=== PATIENT | female | born 1965 | race African-American/Black ===

== ENCOUNTER 2019-09-14 09:22 | Observation (INO) | payer BC ==
[2019-09-14 10:53] LABS: BASO % 0.9 % (0-2.0); EOS % 2.4 % (0-4.5); HEMATOCRIT 38.1 % (32.4-45.2); HEMOGLOBIN 12.6 GM/dL (10.7-15.3); LYMPH % 24.6 % (8-40); MCH 28.1 pg (25.7-33.7); MCHC 33.1 g/dl (32.0-36.0); MEAN PLT VOLUME 9.3 fl (7.5-11.1); MONO % 7.5 % (3.8-10.2); NEUT % 64.6 % (42.8-82.8); PLATELET COUNT 210 K/MM3 (134-434); RBC 4.49 M/mm3 (3.60-5.2); RDW 14.4 % (11.6-15.6); WHITE BLOOD COUNT 7.2 K/mm3 (4.0-10.0)
[2019-09-14 11:07] LABS: INR 1.07 (0.83-1.09); PROTHROMBIN TIME (PATIENT) 12.6 SEC (9.7-13.0)
[2019-09-14 11:35] LABS: ALBUMIN 3.5 g/dl (3.4-5.0); BILIRUBIN,TOTAL 0.6 mg/dL (0.2-1); BLOOD UREA NITROGEN 12.4 mg/dL (7-18); CALCIUM 7.9 mg/dL (8.5-10.1); CREATININE 0.9 mg/dL (0.55-1.3); POTASSIUM 4.1 mmol/L (3.5-5.1); TOT PROT 6.7 g/dl (6.4-8.2)
--- NOTE | 2019-09-14 12:30 | PDOC ---
History of Present Illness - General Chief Complaint: Syncope/Near Syncope Stated Complaint: SYNCOPE,CHIILLS Time Seen by Provider: 09/14/19 10:00 History Source: Patient Exam Limitations: No Limitations Past History - Past Medical History Allergies/Adverse Reactions: Allergies Allergy/AdvReac Type Severity Reaction Status Date / Time No Known Allergies Allergy Verified 09/14/19 09:26 Home Medications: Ambulatory Orders Duloxetine HCl 09/14/19 Ergocalciferol (Vitamin D2) [Vitamin D2] PO WEEKLY 09/14/19 Estradiol 09/14/19 Labetalol HCl 100 mg PO BID 09/14/19 Meloxicam 15 mg PO DAILY 09/14/19 Ofloxacin 1 drop TID 09/14/19 Omeprazole 20 mg PO DAILY 09/14/19 Oxybutynin Chloride [Oxybutynin Chloride ER] 5 mg PO DAILY 09/14/19 CVA: No COPD: No CHF: No DVT: No Dementia: No Other medical history: TRIPLE A - Immunization History Immunization Up to Date: Yes - Psycho Social/Smoking Cessation Hx Smoking History: Never smoked Hx Alcohol Use: No Drug/Substance Use Hx: No *Physical Exam - Vital Signs Last Vital Signs Temp Pulse Resp BP Pulse Ox 98.5 F 70 16 126/83 98 09/14/19 09:27 09/14/19 11:25 09/14/19 11:25 09/14/19 11:25 09/14/19 11:25 - Physical Exam General Appearance: No: Apparent Distress Respiratory/Chest: positive: Lungs Clear, Normal Breath Sounds. negative: Respiratory Distress Cardiovascular: positive: Regular Rhythm, Regular Rate, S1, S2. negative: Murmur Gastrointestinal/Abdominal: positive: Normal Bowel Sounds, Soft. 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, Fully Oriented, Alert, Normal Mood/ Affect, Motor Strength 5/5 ED Treatment Course - LABORATORY CBC & Chemistry Diagram: 09/14/19 10:20 09/14/19 10:20 - ADDITIONAL ORDERS Additional order review: Laboratory Results 09/14/19 09/14/19 09/14/19 10:20 10:20 10:20 PT with INR 12.60 INR 1.07 PTT (Actin FS) 28.0 Sodium 136 Potassium 4.1 Chloride 102 Carbon Dioxide 27 Anion Gap 6 L BUN 12.4 Creatinine 0.9 Est GFR (CKD-EPI)AfAm 85.20 Est GFR (CKD-EPI)NonAf 73.51 Random Glucose 212 H Calcium 7.9 L Total Bilirubin 0.6 AST 26 ALT 20 Alkaline Phosphatase 84 Troponin I < 0.02 Total Protein 6.7 Albumin 3.5 09/14/19 10:20 RBC 4.49 MCV 85.0 MCHC 33.1 RDW 14.4 MPV 9.3 Neutrophils % 64.6 Lymphocytes % 24.6 Monocytes % 7.5 Eosinophils % 2.4 Basophils % 0.9 - RADIOLOGY Radiology Studies Ordered: Category Date Time Status ABDOMEN/PELVIS CTA W/WO CONTR [CT] Stat CT Scan 09/14/19 11:42 Completed CHEST CTA [CT] Stat CT Scan 09/14/19 11:[address] WITHOUT CONTRAST [CT] Stat CT Scan 09/14/19 13:50 Ordered CHEST PA & LAT [RAD] Stat Radiology 09/14/19 10:15 Completed Medical Decision Making - Medical Decision Making 54 y/o F hx of anemia, AAA (dx 3 years ago) presents s/p syncopal episode today. Mentions having diffuse generalized abdominal pain at work and when she sat down, felt lightheaded and then passed out. +diaphoresis. States she woke up and then passed out again. Denies this ever happening in the past. Denies fever, URI sxs, sob, cp, n/v/d, visual/gait changes, numbness/tingling/weakness of extremities, incontinence. Patient does get follow-up for her AAA every 6 months, last checked in 07/2019 but does not know result of size from then; mentions prior to then, the size was around 3 cm. EKG: NSR at 64 bpm, no ectopy Labs reviewed; elevated glucose noted, rest unremarkable CXR negative Consider arrhythmia, possible dissection, AAA rupture (less likely given well appearing patient is currently) Pending results of CTA C/A/P 09/14/19 12:23 CTA C/A/P shows 3.4 cm AAA, no evidence of dissection noted patient will be admitted for syncopal work-up 09/14/19 13:47 Discharge - Discharge Information Problems reviewed: Yes Clinical Impression/Diagnosis: Syncope Qualifiers: Syncope type: unspecified Qualified Code(s): R55 - Syncope and collapse Condition: Stable - Admission Yes - Follow up/Referral Referrals: ON STAFF,NOT [Primary Care Provider] - - Patient Discharge Instructions - Post Discharge Activity
--- NOTE | 2019-09-14 14:28 | HP ---
CHIEF COMPLAINT: PCP: HISTORY OF PRESENT ILLNESS: ER course was notable for: (1) (2) (3) Recent Travel: PAST MEDICAL HISTORY: PAST SURGICAL HISTORY: Social History: Smoking: Alcohol: Drugs: Allergies No Known Allergies Allergy (Verified 09/14/19 09:26) HOME MEDICATIONS: Home Medications Medication Instructions Recorded Duloxetine HCl 09/14/19 Ergocalciferol (Vitamin D2) PO WEEKLY 09/14/19 [Vitamin D2] Estradiol 09/14/19 Labetalol HCl 100 mg PO BID 09/14/19 Meloxicam 15 mg PO DAILY 09/14/19 Ofloxacin 1 drop TID 09/14/19 Omeprazole 20 mg PO DAILY 09/14/19 Oxybutynin Chloride [Oxybutynin 5 mg PO DAILY 09/14/19 Chloride ER] REVIEW OF SYSTEMS CONSTITUTIONAL: Absent: fever, chills, diaphoresis, generalized weakness, malaise, loss of appetite, weight change HEENT: Absent: rhinorrhea, nasal congestion, throat pain, throat swelling, difficulty swallowing, mouth swelling, ear pain, eye pain, visual changes CARDIOVASCULAR: Absent: chest pain, syncope, palpitations, irregular heart rate, lightheadedness , peripheral edema RESPIRATORY: Absent: cough, shortness of breath, dyspnea with exertion, orthopnea, wheezing, stridor, hemoptysis GASTROINTESTINAL: Absent: abdominal pain, abdominal distension, nausea, vomiting, diarrhea, constipation, melena, hematochezia GENITOURINARY: Absent: dysuria, frequency, urgency, hesitancy, hematuria, flank pain, genital pain MUSCULOSKELETAL: Absent: myalgia, arthralgia, joint swelling, back pain, neck pain SKIN: Absent: rash, itching, pallor HEMATOLOGIC/IMMUNOLOGIC: Absent: easy bleeding, easy bruising, lymphadenopathy, frequent infections ENDOCRINE: Absent: unexplained weight gain, unexplained weight loss, heat intolerance, cold intolerance NEUROLOGIC: Absent: headache, focal weakness or paresthesias, dizziness, unsteady gait, seizure, mental status changes, bladder or bowel incontinence PSYCHIATRIC: Absent: anxiety, depression, suicidal or homicidal ideation, hallucinations. PHYSICAL EXAMINATION Vital Signs - 24 hr 09/14/19 09/14/19 09:27 11:25 Temperature 98.5 F Pulse Rate 75 Pulse Rate [ 70 Apical] Respiratory 18 16 Rate Blood Pressure 119/75 Blood Pressure 126/83 [Left Arm] O2 Sat by Pulse 99 98 Oximetry (%) GENERAL: Awake, alert, and fully oriented, in no acute distress. HEAD: Normal with no signs of trauma. EYES: Pupils equal, round and reactive to light, extraocular movements intact, sclera anicteric, conjunctiva clear. No lid lag. EARS, NOSE, THROAT: Ears normal, nares patent, oropharynx clear without exudates. Moist mucous membranes. NECK: Normal range of motion, supple without lymphadenopathy, JVD, or masses. LUNGS: Breath sounds equal, clear to auscultation bilaterally. No wheezes, and no crackles. No accessory muscle use. HEART: Regular rate and rhythm, normal S1 and S2 without murmur, rub or gallop. ABDOMEN: Soft, nontender, not distended, normoactive bowel sounds, no guarding, no rebound, no masses. No hepatomegaly or splenomegaly. MUSCULOSKELETAL: Normal range of motion at all joints. No bony deformities or tenderness. No CVA tenderness. UPPER EXTREMITIES: 2+ pulses, warm, well-perfused. No cyanosis. No clubbing. No peripheral edema. LOWER EXTREMITIES: 2+ pulses, warm, well-perfused. No calf tenderness. No peripheral edema. NEUROLOGICAL: Cranial nerves II-XII intact. Normal speech. Normal gait. PSYCHIATRIC: Cooperative. Good eye contact. Appropriate mood and affect. SKIN: Warm, dry, normal turgor, no rashes or lesions noted, normal capillary refill. Laboratory Results - last 24 hr 09/14/19 09/14/19 09/14/19 10:20 10:20 10:20 WBC 7.2 RBC 4.49 Hgb 12.6 Hct 38.1 MCV 85.0 MCH 28.1 MCHC 33.1 RDW 14.4 Plt Count 210 MPV 9.3 Absolute Neuts (auto) 4.6 Neutrophils % 64.6 Lymphocytes % 24.6 Monocytes % 7.5 Eosinophils % 2.4 Basophils % 0.9 Nucleated RBC % 0 PT with INR 12.60 INR 1.07 PTT (Actin FS) 28.0 Sodium 136 Potassium 4.1 Chloride 102 Carbon Dioxide 27 Anion Gap 6 L BUN 12.4 Creatinine 0.9 Est GFR (CKD-EPI)AfAm 85.20 Est GFR (CKD-EPI)NonAf 73.51 Random Glucose 212 H Calcium 7.9 L Total Bilirubin 0.6 AST 26 ALT 20 Alkaline Phosphatase 84 Troponin I Total Protein 6.7 Albumin 3.5 09/14/19 10:20 WBC RBC Hgb Hct MCV MCH MCHC RDW Plt Count MPV Absolute Neuts (auto) Neutrophils % Lymphocytes % Monocytes % Eosinophils % Basophils % Nucleated RBC % PT with INR INR PTT (Actin FS) Sodium Potassium Chloride Carbon Dioxide Anion Gap BUN Creatinine Est GFR (CKD-EPI)AfAm Est GFR (CKD-EPI)NonAf Random Glucose Calcium Total Bilirubin AST ALT Alkaline Phosphatase Troponin I < 0.02 Total Protein Albumin ASSESSMENT/PLAN:
--- NOTE | 2019-09-14 14:39 | HP ---
CHIEF COMPLAINT: syncopal episode PCP: HISTORY OF PRESENT ILLNESS: Patient is a 54 year old female with history of AAA, hypertension, presents after syncopal episode. Endorses that she was in the basement of her workplace when she began feeling diaphoretic, dizzy, with palpitations. She felt generalized weakness and proceeded to sit down on a chair. Patient reports three episodes of syncope, spontaneously waking up and then syncopizing again within rapid succession. Patient states that she does not know how long these episodes lasted. She denies falling, hitting her head or any part of her body. Denies loss of bowel or bladder incontinence. These events were not witnessed by anyone. She endorses last syncopal episode was approx 15 years ago in [place]. She was told it was likely secondary to anemia. ER course was notable for: (1) EKG reveals normal sinus rhythm with incomplete RBBB (2) CTA reveals distal AAA 3.4cm, negative for dissection. Thyroid nodule noted. 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 Lives alone in private house. Independent in activities of daily living. Smoking: Denies Alcohol: Endorses occasional social drink Drugs: Denies Allergies No Known Allergies Allergy (Verified 09/14/19 09:26) HOME MEDICATIONS: Home Medications Medication Instructions Recorded Duloxetine HCl 09/14/19 Ergocalciferol (Vitamin D2) PO WEEKLY 09/14/19 [Vitamin D2] Estradiol 09/14/19 Labetalol HCl 100 mg PO BID 09/14/19 Meloxicam 15 mg PO DAILY 09/14/19 Ofloxacin 1 drop TID 09/14/19 Omeprazole 20 mg PO DAILY 09/14/19 Oxybutynin Chloride [Oxybutynin 5 mg PO DAILY 09/14/19 Chloride ER] REVIEW OF SYSTEMS CONSTITUTIONAL: Absent: fever, chills, diaphoresis, generalized weakness, malaise, loss of appetite, weight change HEENT: Absent: rhinorrhea, nasal congestion, throat pain, throat swelling, difficulty swallowing, mouth swelling, ear pain, eye pain, visual changes CARDIOVASCULAR: Absent: chest pain, syncope, palpitations, irregular heart rate, lightheadedness , peripheral edema RESPIRATORY: Absent: cough, shortness of breath, dyspnea with exertion, orthopnea, wheezing, stridor, hemoptysis GASTROINTESTINAL: Absent: abdominal pain, abdominal distension, nausea, vomiting, diarrhea, constipation, melena, hematochezia GENITOURINARY: Absent: dysuria, frequency, urgency, hesitancy, hematuria, flank pain, genital pain MUSCULOSKELETAL: Absent: myalgia, arthralgia, joint swelling, back pain, neck pain SKIN: Absent: rash, itching, pallor HEMATOLOGIC/IMMUNOLOGIC: Absent: easy bleeding, easy bruising, lymphadenopathy, frequent infections ENDOCRINE: Absent: unexplained weight gain, unexplained weight loss, heat intolerance, cold intolerance NEUROLOGIC: Absent: headache, focal weakness or paresthesias, dizziness, unsteady gait, seizure, mental status changes, bladder or bowel incontinence PSYCHIATRIC: Absent: anxiety, depression, suicidal or homicidal ideation, hallucinations. PHYSICAL EXAMINATION Vital Signs - 24 hr 09/14/19 09/14/19 09:27 11:25 Temperature 98.5 F Pulse Rate 75 Pulse Rate [ 70 Apical] Respiratory 18 16 Rate Blood Pressure 119/75 Blood Pressure 126/83 [Left Arm] O2 Sat by Pulse 99 98 Oximetry (%) GENERAL: Awake, alert, and fully oriented, in no acute distress. HEAD: Normal with no signs of trauma. EYES: Pupils equal, round and reactive to light, extraocular movements intact, sclera anicteric, conjunctiva clear. No lid lag. EARS, NOSE, THROAT: Ears normal, nares patent, oropharynx clear without exudates. Moist mucous membranes. NECK: Normal range of motion, supple without lymphadenopathy, JVD, or masses. LUNGS: Breath sounds equal, clear to auscultation bilaterally. No wheezes, and no crackles. No accessory muscle use. HEART: Regular rate and rhythm, normal S1 and S2 without murmur, rub or gallop. ABDOMEN: Soft, nontender, not distended, normoactive bowel sounds, no guarding, no rebound, no masses. No hepatomegaly or splenomegaly. MUSCULOSKELETAL: Normal range of motion at all joints. No bony deformities or tenderness. No CVA tenderness. UPPER EXTREMITIES: 2+ pulses, warm, well-perfused. No cyanosis. No clubbing. No peripheral edema. LOWER EXTREMITIES: 2+ pulses, warm, well-perfused. No calf tenderness. No peripheral edema. NEUROLOGICAL: Cranial nerves II-XII intact. Normal speech. Normal gait. PSYCHIATRIC: Cooperative. Good eye contact. Appropriate mood and affect. SKIN: Warm, dry, normal turgor, no rashes or lesions noted, normal capillary refill. Laboratory Results - last 24 hr 09/14/19 09/14/19 09/14/19 10:20 10:20 10:20 WBC 7.2 RBC 4.49 Hgb 12.6 Hct 38.1 MCV 85.0 MCH 28.1 MCHC 33.1 RDW 14.4 Plt Count 210 MPV 9.3 Absolute Neuts (auto) 4.6 Neutrophils % 64.6 Lymphocytes % 24.6 Monocytes % 7.5 Eosinophils % 2.4 Basophils % 0.9 Nucleated RBC % 0 PT with INR 12.60 INR 1.07 PTT (Actin FS) 28.0 Sodium 136 Potassium 4.1 Chloride 102 Carbon Dioxide 27 Anion Gap 6 L BUN 12.4 Creatinine 0.9 Est GFR (CKD-EPI)AfAm 85.20 Est GFR (CKD-EPI)NonAf 73.51 Random Glucose 212 H Calcium 7.9 L Total Bilirubin 0.6 AST 26 ALT 20 Alkaline Phosphatase 84 Troponin I Total Protein 6.7 Albumin 3.5 09/14/19 10:20 WBC RBC Hgb Hct MCV MCH MCHC RDW Plt Count MPV Absolute Neuts (auto) Neutrophils % Lymphocytes % Monocytes % Eosinophils % Basophils % Nucleated RBC % PT with INR INR PTT (Actin FS) Sodium Potassium Chloride Carbon Dioxide Anion Gap BUN Creatinine Est GFR (CKD-EPI)AfAm Est GFR (CKD-EPI)NonAf Random Glucose Calcium Total Bilirubin AST ALT Alkaline Phosphatase Troponin I < 0.02 Total Protein Albumin ASSESSMENT/PLAN: Patient is a 54 year old female with history of AAA, presents after syncopal episode. Syncopal episodes -Unclear etiology; cardiogenic vs neurogenic -EKG reveals normal sinus rhythm at 64BPM, incomplete RBBB -Initial troponin 0,02. Will obtain additional troponin -Cardiac Telemetry monitoring -Transthoracic ECHO -Carotid duplex ultrasound -Orthostatic vital signs -CT head noncontrast -Fall precautions -Physical therapy evaluation AAA -Stable, without dissection noted on CTA -Continue outpatient follow up Hypertension -Continue home Labetalol Overactive bladder -Home medications reveal Oxybutinyn- will hold for now in setting of syncopal episodes. Right sided thyroid nodule -Incidental finding on CT scan. Will obtain TSH, free T4 GERD -Continue home Pantoprazole FEN -No IV fluids indicated -Follow BMP -Regular diet Prophylaxis -SCDs bilateral lower extremities. Anticipate DC within 24 hours Disposition -Telemetry observation. Visit type - Emergency Visit Emergency Visit: Yes ED Registration Date: 09/14/19 Care time: The patient presented to the Emergency Department on the above date and was hospitalized for further evaluation of their emergent condition. - New Patient This patient is new to me today: Yes Date on this admission: 09/14/19 - Critical Care Critical Care patient: No ATTENDING PHYSICIAN STATEMENT I saw and evaluated the patient. I reviewed the resident's note and discussed the case with the resident. I agree with the resident's findings and plan as documented. SUBJECTIVE: OBJECTIVE: ASSESSMENT AND PLAN:
--- NOTE | 2019-09-14 15:44 | PN ---
Teaching Attending Note Name of Resident: Lester Moore ATTENDING PHYSICIAN STATEMENT I saw and evaluated the patient. I reviewed the resident's note and discussed the case with the resident. I agree with the resident's findings and plan as documented. SUBJECTIVE:Patient is a 54 year old female with history of AAA, hypertension, presents after syncopal episode. she was in the basement of her workplace when she began feeling diaphoretic, dizzy, with palpitations. She felt generalized weakness and proceeded to sit down on a chair. Patient reports three episodes of syncope, spontaneously waking up and then syncopizing again within rapid succession. she had abd discomfot at that time, no nausea no vomitng no diarroea , no recent urinary symptoms, Patient states that she does not know how long these episodes lasted. She denies falling, hitting her head or any part of her body. Denies loss of bowel or bladder incontinence. These events were not witnessed by anyone. She endorses last syncopal episode was approx 15 years ago in [place]. She was told it was likely secondary to anemia. OBJECTIVE: very pleasant lady, in no acute distress, alert awake oriented to time place and person, VSS, HEENT is normal cvs s1/s2/0 chest ctab abd soft nt no organomegaly,bs+ and normal, ext no c/c//e neuro non focal, MS 2 + all 4 ext, no sensory deficit, ASSESSMENT AND PLAN: Syncopal episodes -Unclear etiology; cardiogenic vs neurogenic -Initial troponin 0,02. Will obtain additional troponin -Cardiac Telemetry monitoring -Transthoracic echo is normal EF, and mod- severe TR, asymtomatic, will get out pt nascimento, -Carotid duplex ultrasound pending, -Orthostatic vital signs -CT head noncontrast ordered, pending, -Fall precautions -Physical therapy evaluation AAA -Stable, without dissection at baseline, -Continue outpatient follow up Hypertension -Continue home Labetalol will monitor,
--- NOTE | 2019-09-14 15:50 | ECHO ---
Name: VENKATESH EVELYNE JENNIFER Escobar Exam:Adult Echocardiogram Study Date: 09/14/2019 03:13 PM Age: 54 yrs Height: 71 in Weight: 211 lb BSA: 2.2 m2 MMode/2D Measurements & Calculations IVSd: 1.1 cm Ao root diam: 3.1 cm LVIDd: 3.5 cm LA dimension: 3.0 cm LVIDs: 2.6 cm ACS: 1.9 cm LVPWd: 1.0 cm EDV(Teich): 51.8 ml LVOT diam: 2.0 cm ESV(Teich): 25.4 ml Doppler Measurements & Calculations MV V2 max: 54.3 cm/sec MV E max jordin: 50.8 cm/sec MV max P.2 mmHg MV A max jordin: 50.8 cm/sec MV V2 mean: 36.0 cm/sec MV E/A: 1.0 MV mean P.57 mmHg MV dec time: 0.26 sec MV V2 VTI: 17.3 cm Ao V2 max: 89.2 cm/sec LV V1 max P.3 mmHg Ao max P.2 mmHg LV V1 max: 75.0 cm/sec Ao V2 mean: 66.5 cm/sec Ao mean P.9 mmHg Ao V2 VTI: 20.4 cm ROLANDO(V,D): 2.7 cm2 MR max jordin: 166.8 cm/sec TR max jordin: 168.3 cm/sec MR max P.9 mmHg TR max P.3 mmHg PA V2 max: 63.2 cm/sec PI end-d jordin: 71.2 cm/sec PA max P.6 mmHg Med Peak E' Jordin: 9.9 cm/sec Med E/e': 5.1 Lat Peak E' Jordin: 12.1 cm/sec Lat E/e': 4.2 Procedure A two-dimensional transthoracic echocardiogram with color flow and Doppler was performed. The study w as technically difficult with many images being suboptimal in quality. Left Ventricle The left ventricular size, thickness and function are normal. The left ventricular ejection fraction is normal. The left ventricular wall motion is normal. Right Ventricle The right ventricle is not well visualized. Atria Normal left and right atrial size and function. Mitral Valve There is mild mitral valve thickening. There is no mitral valve stenosis. There is trace to mild mitr al regurgitation. Tricuspid Valve There is mild tricuspid valve thickening. There is no tricuspid stenosis. There is moderate to severe tricuspid regurgitation. Right ventricular systolic pressure is normal. Aortic Valve The aortic valve is normal in structure and function. No hemodynamically significant valvular aortic stenosis. No aortic regurgitation is present. Pulmonic Valve The pulmonic valve is not well visualized. There is no pulmonic valvular stenosis. Moderate pulmonic valvular regurgitation. Great Vessels The aortic root is normal size. Pericardium/Pleura There is no pericardial effusion. Interpretation Summary The left ventricular size, thickness and function are normal The left ventricular ejection fraction is normal. The left ventricular wall motion is normal. There is trace to mild mitral regurgitation. Moderate pulmonic valvular regurgitation. Right ventricular systolic pressure is normal. There is moderate to severe tricuspid regurgitation. The study was technically difficult with many images being suboptimal in quality. MD Tremayne Galan 09/14/2019 03:49 PM
--- NOTE | 2019-09-14 15:58 | EKG ---
Test Reason : Blood Pressure : / mmHG Vent. Rate : 064 BPM Atrial Rate : 064 BPM P-R Int : 204 ms QRS Dur : 096 ms QT Int : 412 ms P-R-T Axes : 029 022 006 degrees QTc Int : 425 ms POOR DATA QUALITY, INTERPRETATION MAY BE ADVERSELY AFFECTED NORMAL SINUS RHYTHM INCOMPLETE RIGHT BUNDLE BRANCH BLOCK BORDERLINE ECG NO PREVIOUS ECGS AVAILABLE Confirmed by ROMAINE PEARSON MD ([id number]) on 09/14/2019 3:57:59 PM Referred By: Confirmed By:ROMAINE PEARSON MD
--- NOTE | 2019-09-14 16:26 | PDOC ---
*Physical Exam - Vital Signs Last Vital Signs Temp Pulse Resp BP Pulse Ox 98.5 F 70 16 126/83 98 09/14/19 09:27 09/14/19 11:25 09/14/19 11:25 09/14/19 11:25 09/14/19 11:25 - Physical Exam 09/14/19 16:45 awake alert lungs clear bilat heart rrr no mrg abd soft nt nd ext wwp. no edema. no calf tenderness. ED Treatment Course - LABORATORY CBC & Chemistry Diagram: 09/14/19 10:20 09/14/19 10:20 - ADDITIONAL ORDERS Additional order review: Laboratory Results 09/14/19 09/14/19 09/14/19 10:20 10:20 10:20 PT with INR 12.60 INR 1.07 PTT (Actin FS) 28.0 Sodium 136 Potassium 4.1 Chloride 102 Carbon Dioxide 27 Anion Gap 6 L BUN 12.4 Creatinine 0.9 Est GFR (CKD-EPI)AfAm 85.20 Est GFR (CKD-EPI)NonAf 73.51 Random Glucose 212 H Calcium 7.9 L Total Bilirubin 0.6 AST 26 ALT 20 Alkaline Phosphatase 84 Troponin I < 0.02 Total Protein 6.7 Albumin 3.5 09/14/19 10:20 RBC 4.49 MCV 85.0 MCHC 33.1 RDW 14.4 MPV 9.3 Neutrophils % 64.6 Lymphocytes % 24.6 Monocytes % 7.5 Eosinophils % 2.4 Basophils % 0.9 Medical Decision Making - Medical Decision Making 09/14/19 16:25 54 yo F with h/o aaa here with syncopal episiode today. pt states she was at work and suddenly had abd pain. followed by syncope. no chest pain or palpitations. no pain currently. did have loose stool. is followed by a vascular surgeon Dr Dia at [facility]. they are cudrently watching her anuerysm. due to pt history, and syncope will admit to telemtry r/o dysrhtymia. ct angio shows aaa, no leak. due to pain may consider vascular consult on admission. pt seen and examined by me. seen in conjunction with LIN Melo. agree with assessment and plan. 09/14/19 16:43 Discharge - Discharge Information Problems reviewed: Yes Clinical Impression/Diagnosis: Syncope Qualifiers: Syncope type: unspecified Qualified Code(s): R55 - Syncope and collapse Condition: Stable - Admission Yes - Follow up/Referral - Patient Discharge Instructions - Post Discharge Activity
[2019-09-14 20:00] VITALS: BMI 30.2
[2019-09-14] MEDS: LABETALOL HCL 100 MG TABLET (FP) PO SCH (22:15)
[2019-09-15 07:43] LABS: HEMATOCRIT 36.5 % (32.4-45.2); HEMOGLOBIN 12.4 GM/dL (10.7-15.3); MCH 28.1 pg (25.7-33.7); MCHC 33.9 g/dl (32.0-36.0); MEAN CELL VOLUME 82.9 fl (80-96); PLATELET COUNT 208 K/MM3 (134-434); RDW 14.1 % (11.6-15.6); WHITE BLOOD COUNT 6.1 K/mm3 (4.0-10.0)
[2019-09-15 08:33] LABS: ALBUMIN 3.3 g/dl (3.4-5.0); BILIRUBIN,TOTAL 0.7 mg/dL (0.2-1); BLOOD UREA NITROGEN 12.1 mg/dL (7-18); CALCIUM 8.6 mg/dL (8.5-10.1); CREATININE 0.8 mg/dL (0.55-1.3); MAGNESIUM 2.3 mg/dL (1.8-2.4); PHOSPHOROUS 3.6 mg/dL (2.5-4.9); TOT PROT 6.4 g/dl (6.4-8.2)
[2019-09-15] MEDS ORDERED: OXYBUTYNIN CHLORIDE 5 MG TABLET PO SCH (10:00)
[2019-09-15] MEDS ORDERED: PANTOPRAZOLE 20 MG TABLET (FP) PO SCH (10:00)
[2019-09-15] MEDS: LABETALOL HCL 100 MG TABLET (FP) PO SCH ×2 (10:04→10:09)
[2019-09-15] MEDS: DULoxetine HCL 30 MG CAPSULE.DR PO SCH ×2 (10:04→10:09)
--- NOTE | 2019-09-15 10:49 | CON.CARD ---
Cardiology Consult (text) - Consultation Consultation Note: cc: syncope hpi: 54 f hx htn, aaa, here with syncope. Noticed some abd pain, sat down, felt sweaty and weak and then had loc. No cp palps sob pnd orthopnea le edema. Feels well now. No hx of frequent such episodes. pmh: per hpi psh: none social: no tob fam: no premature cad, scd ros: per hpi; all others nl meds: Home Medications Medication Instructions Recorded Duloxetine HCl 60 mg PO DAILY 09/14/19 Ergocalciferol (Vitamin D2) 1 cap PO WEEKLY 09/14/19 [Vitamin D2] Estradiol 1 applic .ROUTE DAILY 09/14/19 Labetalol HCl 100 mg PO BID 09/14/19 Meloxicam 15 mg PO DAILY 09/14/19 Ofloxacin 1 drop TID 09/14/19 Omeprazole 20 mg PO DAILY 09/14/19 Oxybutynin Chloride [Oxybutynin 5 mg PO DAILY 09/14/19 Chloride ER] pe: Vital Signs Period Temp Pulse Resp BP Sys/Astorga Pulse Ox Last 24 Hr 97.7 F-98.4 F 65-82 16-20 118-135/74-87 96-98 nad no jvd rrr s1s2 no mrg cta bl nl eff aao3 no le e/c/c abd nt nd pos bs no jaundice diaphoresis pos dp pt no carotid bruits Laboratory Last Values WBC 6.1 K/mm3 (4.0-10.0) 09/15/19 07:04 RBC 4.40 M/mm3 (3.60-5.2) 09/15/19 07:04 Hgb 12.4 GM/dL (10.7-15.3) 09/15/19 07:04 Hct 36.5 % (32.4-45.2) 09/15/19 07:04 MCV 82.9 fl (80-96) 09/15/19 07:04 MCH 28.1 pg (25.7-33.7) 09/15/19 07:04 MCHC 33.9 g/dl (32.0-36.0) 09/15/19 07:04 RDW 14.1 % (11.6-15.6) 09/15/19 07:04 Plt Count 208 K/MM3 (134-434) 09/15/19 07:04 MPV 9.0 fl (7.5-11.1) 09/15/19 07:04 Absolute Neuts (auto) 4.6 K/mm3 (1.5-8.0) 09/14/19 10:20 Neutrophils % 64.6 % (42.8-82.8) 09/14/19 10:20 Lymphocytes % 24.6 % (8-40) 09/14/19 10:20 Monocytes % 7.5 % (3.8-10.2) 09/14/19 10:20 Eosinophils % 2.4 % (0-4.5) 09/14/19 10:20 Basophils % 0.9 % (0-2.0) 09/14/19 10: Nucleated RBC % 0 % (0-0) 09/14/19 10:20 PT with INR 12.60 SEC (9.7-13.0) 09/14/19 10:20 INR 1.07 (0.83-1.09) 09/14/19 10:20 PTT (Actin FS) 28.0 SECONDS (25.2-36.5) 09/14/19 10:20 Sodium 137 mmol/L (136-145) 09/15/19 07:04 Potassium 4.0 mmol/L (3.5-5.1) 09/15/19 07:04 Chloride 102 mmol/L (98-107) 09/15/19 07:04 Carbon Dioxide 30 mmol/L (21-32) 09/15/19 07:04 Anion Gap 6 MMOL/L (8-16) L 09/15/19 07:04 BUN 12.1 mg/dL (7-18) 09/15/19 07:04 Creatinine 0.8 mg/dL (0.55-1.3) 09/15/19 07:04 Est GFR (CKD-EPI)AfAm 98.24 09/15/19 07:04 Est GFR (CKD-EPI)NonAf 84.76 09/15/19 07:04 Random Glucose 139 mg/dL (74-106) H 09/15/19 07:04 Calcium 8.6 mg/dL (8.5-10.1) 09/15/19 07:04 Phosphorus 3.6 mg/dL (2.5-4.9) 09/15/19 07:04 Magnesium 2.3 mg/dL (1.8-2.4) 09/15/19 07:04 Total Bilirubin 0.7 mg/dL (0.2-1) 09/15/19 07:04 AST 14 U/L (15-37) L 09/15/19 07:04 ALT 17 U/L (13-61) 09/15/19 07:04 Alkaline Phosphatase 80 U/L (45-117) 09/15/19 07:04 Troponin I < 0.02 ng/ml (0.00-0.05) 09/14/19 14:45 Total Protein 6.4 g/dl (6.4-8.2) 09/15/19 07:04 Albumin 3.3 g/dl (3.4-5.0) L 09/15/19 07:04 TSH 1.68 uIU/ml (0.358-3.74) 09/15/19 07:04 Thyroxine (T4) 8.8 ug/dl (4.5-13.9) 09/15/19 07:04 tele: sr echo 09/2019: nl lv, mod-sev tr, nl rvsp cta chest: no chf, no dissection ecg: sr nl intervals no ischemic changes a/p: 54 f hx htn, aaa, here with syncope. syncope: -seems vasovagal -no signs chf, acs, arrhythmia. echo w/o etiology -neuro consulted -check ortho vitals -outpt f/u for event monitor htn: -cont bb aaa: -mild size, cont bb, bp control
--- NOTE | 2019-09-15 11:03 | PN ---
Progress Note (short form) - Note Progress Note: VAsc[facility] Surgery CArotid ultrasound images reviewed. No significant bl ICA disease. At best maybe 50%. 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 Right verterbral artery is patent. No need for any surgery or intervention. Medical management. Jeyson Torres DO
--- NOTE | 2019-09-15 11:24 | CON.NEURO ---
Consult Consult Specialty:: Tima Referred by:: ER - History of Present Illness History of Present Illness: 54-year-old right-handed female patient with history of high blood pressure was at her usual status of health until yesterday presented to the emergency room at [facility] with an episode of questionable source syncope patient felt dizzy with palpitation I reviewed the CAT scan of the head and carotid Doppler patient was evaluated by vascular surgery patient denies any history of seizure in the past patient was admitted to the telemetry for further treatment and management. - History Source History Provided By: Patient, Medical Record Limitations to Obtaining History: No Limitations - Past Medical History ...: No - Alcohol/Substance Use Hx Alcohol Use: No - Smoking History Smoking history: Never smoked Have you smoked in the past 12 months: No Home Medications - Allergies Allergies/Adverse Reactions: Allergies Allergy/AdvReac Type Severity Reaction Status Date / Time No Known Allergies Allergy Verified 09/14/19 09:26 - Home Medications Home Medications: Ambulatory Orders Duloxetine HCl 60 mg PO DAILY 09/14/19 Ergocalciferol (Vitamin D2) [Vitamin D2] 1 cap PO WEEKLY 09/14/19 Estradiol 1 applic .ROUTE DAILY 09/14/19 Labetalol HCl 100 mg PO BID 09/14/19 Omeprazole 20 mg PO DAILY 09/14/19 Oxybutynin Chloride [Oxybutynin Chloride ER] 5 mg PO DAILY 09/14/19 Atorvastatin Ca [Lipitor] 40 mg PO HS #30 tablet 09/15/19 Family Medical History Family History: Unremarkable Review of Systems - Review of Systems Constitutional: reports: No Symptoms Eyes: reports: No Symptoms HENT: reports: No Symptoms Physical Exam-Neuro Vital Signs: Vital Signs Temperature 97.7 F 09/15/19 01:51 Pulse Rate 65 09/15/19 06:00 Respiratory Rate 20 09/15/19 06:00 Blood Pressure 118/78 09/15/19 06:00 O2 Sat by Pulse Oximetry (%) 96 09/14/19 22:39 Constitutional: Yes: Well Nourished Neck: Yes: WNL Cardiovascular: Yes: WNL Labs: CBC, BMP 09/15/19 07:04 09/15/19 07:04 INR, PTT INR 1.07 (0.83-1.09) 09/14/19 10:20 - Neuro Exam Level Of Consciousness: Yes: Oriented to Person, Oriented to Place, Oriented to Time Eyes: Yes: PERRLA Speech: WNL Dominant Hand: Right Cranial Nerves II-XII Intact: Yes Gag: Present DTR's: 1+ Left Bicep, 1+ Right Bicep, 1+ Left Tricep, 1+ Right Tricep Response to light touch: Normal Response to pain prick: Normal Response to temperature: Normal Response to vibration: Normal Motor Strength: 3/5: Left Arm, Right Arm, Left Leg, Right Leg Gait: Deferred Imaging - Results Cat Scan: Image Reviewed Problem List - Problems (1) Syncope Code(s): R55 - SYNCOPE AND COLLAPSE Qualifiers: Syncope type: unspecified Qualified Code(s): R55 - Syncope and collapse Assessment/Plan vasovagal syncope Check a Holter monitor. No need for baby aspirin. Statin. Homocysteine level. Check oorthostais every shift
[2019-09-15 12:34] VITALS: TEMP 98.2
[2019-09-15 15:45] VITALS: BP 119/76; PULSE 71
--- NOTE | 2019-09-15 17:42 | DS ---
Physical Exam: SUBJECTIVE: Patient seen and examined at bedside. Feeling well, eating lunch. Daughter at bedside. Plan discussed, in agreement. OBJECTIVE: Vital Signs Period Temp Pulse Resp BP Sys/Astorga Pulse Ox Last 24 Hr 97.7 F-98.4 F 65-88 18-20 112-135/63-87 96-96 PHYSICAL EXAM GENERAL: The patient is awake, alert, and fully oriented, in no acute distress. HEAD: Normal with no signs of trauma. EYES: PERRL, extraocular movements intact, conjunctiva clear. ENT: Ears normal, nares patent, oropharynx clear without exudates, moist mucous membranes. NECK: Trachea midline, supple. LUNGS: Breath sounds equal, clear to auscultation bilaterally, no wheezes, no crackles, no accessory muscle use. HEART: Regular rate and rhythm, S1, S2 without murmur, rub or gallop. ABDOMEN: Soft, nontender, nondistended, normoactive bowel sounds EXTREMITIES: 2+ pulses, warm, well-perfused, no edema. NEUROLOGICAL: Cranial nerves II through XII grossly intact. PSYCH: Normal mood, normal affect. SKIN: Warm, dry, normal turgor LABS Laboratory Results - last 24 hr 09/15/19 09/15/19 07:04 07:04 WBC 6.1 RBC 4.40 Hgb 12.4 Hct 36.5 MCV 82.9 MCH 28.1 MCHC 33.9 RDW 14.1 Plt Count 208 MPV 9.0 Sodium 137 Potassium 4.0 Chloride 102 Carbon Dioxide 30 Anion Gap 6 L BUN 12.1 Creatinine 0.8 Est GFR (CKD-EPI)AfAm 98.24 Est GFR (CKD-EPI)NonAf 84.76 Random Glucose 139 H Calcium 8.6 Phosphorus 3.6 Magnesium 2.3 Total Bilirubin 0.7 AST 14 L ALT 17 Alkaline Phosphatase 80 Total Protein 6.4 Albumin 3.3 L TSH 1.68 Thyroxine (T4) 8.8 09/14/19 09/14/19 09/14/19 10:20 10:20 14:45 Random Glucose 212 H Calcium 7.9 L Phosphorus Total Bilirubin 0.6 AST 26 ALT 20 Alkaline Phosphatase 84 Troponin I < 0.02 < 0.02 Total Protein 6.7 Albumin 3.5 TSH Thyroxine (T4) 09/15/19 07:04 Random Glucose Calcium 8.6 Phosphorus 3.6 Total Bilirubin 0.7 AST 14 L ALT 17 Alkaline Phosphatase Troponin I Total Protein 6.4 Albumin 3.3 L TSH 1.68 Thyroxine (T4) 8.8 Imaging 09/14/19: CXR: (-) 09/14/19: CTA abdomen, pelvis Chest , thorax CTA: no evidence of thoracic aortic aneurysm or dissection. 3.4cm distal AAA, no evidence of abdominal aortic dissectino. right thyroid nodule. (1.2cm hypodense nodule in the R lobe of thyroid. sono follow up is recommended). no acute pathology in chest, abdomen or pelis. 09/14/19: Head CT: negative 09/14/19: Carotid duplex: no definite flow noted along expected course of extracranial left vertebral artery. additional eval with CTA is suggested. a possible approximately 50-70% L ICA stenosis noted. CTA also recommended to evaluate this. Results reviewed by vascular, no acute intervention needed medical management 09/15/19: Neck CTA: severe tortuosity of R anterolisthesis of L ICA. minimal plaque at the left common carotid bifurcation without evidence of hemodynamicaly significant stenosis bilaterally. tortuosity of both vertebral arteries without evidence of stenosis. significant tortuosity of basilar artery without gross stenosis. 1.3cm focal low attenuation density in the right thyroid lobe for which correlation with thyroid ultrasound is needed to evaluate for a nodule. Results were reviewed with neuro 09/15/19: ECHO: LVSF normal, LV EF normal, wall motion normal, trace to mild MR, moderate pulm valve regurgitation, RVSP normal. moderate to severe TR HOSPITAL COURSE: Date of Admission:09/14/19 Date of Discharge: 09/15/19 54 year old female with history of AAA, hypertension, who presented after syncopal episode. Endorses that she was in the basement of her workplace when she began feeling diaphoretic, dizzy, with palpitations. She felt generalized weakness and proceeded to sit down on a chair. Patient reports three episodes of syncope, spontaneously waking up and then syncopizing again within rapid succession. Patient states that she does not know how long these episodes lasted. She denies falling, hitting her head or any part of her body. Denies loss of bowel or bladder incontinence. These events were unwitnessed. She endorses last syncopal episode approx 15 years ago in [place]. She was told it was likely secondary to anemia. After pt was in the hospital, she was evaluated as above. Her orthostatic vital signs were normal, however it was possible her sx were 2/2 vasovagal syncope. Her troponins were (-) x 2 . ECHO, carotid, CTA, CXR, neck CTA results as noted above. Was seen by cardio, recommended holter /event monitor. per neuro, also in agreement with holter, as well as c/w statin. No need for baby aspirin at this time. Can have homocysteine level checked as outpatient. Neck CTA results and carotid results were reviewed with neuro and vascular respectively. No acute intervention needed. Will need f/u with PCP, neuro, cardio on d/c. Minutes to complete discharge: 47 Discharge Summary Problems reviewed: Yes Reason For Visit: SYNCOPE Current Active Problems Syncope (Acute) AAA (abdominal aortic aneurysm) (Chronic) Hypertension (Chronic) Condition: Stable - Instructions Diet, Activity, Other Instructions: You were in the hospital because you passed out. This may have occurred from vasovagal syncope. It is also possible that you were dehydrated. You underwent the following tests: -carotid doppler (of your neck vessels): you had decreased flow in one of your arteries, however this was discussed with a vascular doctor -CT scan of your head: was normal -ECHO (picture of your heart): was normal, you did have regurgitation of your tricuspid valve, however you were seen and cleared by a registered radiation therapist -CT angio: just showed a right thyroid nodule. You will need to follow this up on ultrasound, as an outpatient. -Neck CT angio (to look at the blood vessels): showed that your vessels were tortuous, but you did not have any vessel narrowing You improved and are being sent home. Medications Please take the following medications at home upon discharge: 1. Lipitor 40mg (1 pill) a day for cholesterol, heart/ neuro health 2. You may continue your home medications Care You will need a holter monitor done as an outpatient. You can arrange this with your registered radiation therapist. You will need a thyroid ultrasound to follow your thyroid nodule. You can discuss this with your primary care physician. You will also need to have your liver function checked as you are on the statin (lipitor). Please discuss with your primary care physician. Follow up Please follow up with the following doctors upon your discharge: -a primary care doctor, Dr. Tabares - 1 week to discuss your visit. -a registered radiation therapist, Dr. Khalil - 1 week to set up a holter monitor -neurologist, Dr. Alfred - 1 week. You are also able to follow with your home doctors at [facility], however please make sure you give them this information. Referrals: Felix Tabares MD [Staff Physician] - 1 Week Abraham Khalil MD [Staff Physician] - 1 Week ON STAFF,NOT [Primary Care Provider] - Shyann Alfred MD [Staff Physician] - 1 Week Disposition: HOME - Home Medications Comprehensive Discharge Medication List: Ambulatory Orders Duloxetine HCl 60 mg PO DAILY 09/14/19 Ergocalciferol (Vitamin D2) [Vitamin D2] 1 cap PO WEEKLY 09/14/19 Estradiol 1 applic .ROUTE DAILY 09/14/19 Labetalol HCl 100 mg PO BID 09/14/19 Omeprazole 20 mg PO DAILY 09/14/19 Oxybutynin Chloride [Oxybutynin Chloride ER] 5 mg PO DAILY 09/14/19 Atorvastatin Ca [Lipitor] 40 mg PO HS #30 tablet 09/15/19 This patient is new to me today: Yes Date on this admission: 09/15/19 Emergency Visit: No Critical Care patient: No - Discharge Referral Referred to [facility] No
--- NOTE | 2019-09-15 19:28 | PN ---
Teaching Attending Note Name of Resident: Fanny Melendez ATTENDING PHYSICIAN STATEMENT I saw and evaluated the patient. I reviewed the resident's note and discussed the case with the resident. I agree with the resident's findings and plan as documented. SUBJECTIVE: Seen and examined at bedside, feeling well, ready to go home OBJECTIVE: Vital Signs - 24 hr 09/14/19 09/15/19 09/15/19 22:39 01:51 06:00 Temperature 98.4 F 97.7 F Pulse Rate 80 77 65 Pulse Rate [ Left side Sitting] Pulse Rate [ Left side Standing] Pulse Rate [ Left side Supine] Respiratory 18 18 20 Rate Blood Pressure 126/78 135/74 118/78 Blood Pressure [Left side Sitting] Blood Pressure [Left side Standing] Blood Pressure [Left side Supine] O2 Sat by Pulse 96 Oximetry (%) 09/15/19 09/15/19 09/15/19 10:00 14:00 14:15 Temperature 98.2 F 98.2 F Pulse Rate 73 76 Pulse Rate [ Left side Sitting] Pulse Rate [ Left side Standing] Pulse Rate [ Left side Supine] Respiratory 20 20 20 Rate Blood Pressure 112/66 116/63 Blood Pressure [Left side Sitting] Blood Pressure [Left side Standing] Blood Pressure [Left side Supine] O2 Sat by Pulse 96 Oximetry (%) 09/15/19 15:43 Temperature Pulse Rate Pulse Rate [ 79 Left side Sitting] Pulse Rate [ 88 Left side Standing] Pulse Rate [ 71 Left side Supine] Respiratory Rate Blood Pressure Blood Pressure 128/86 [Left side Sitting] Blood Pressure 119/82 [Left side Standing] Blood Pressure 119/76 [Left side Supine] O2 Sat by Pulse Oximetry (%) Laboratory Results - last 24 hr PE: gen : NAD cvs: s1s2, rrr lungs: cta bl, unlabored abdomen: soft, ntnd, nabs ext: no cce 09/15/19 09/15/19 07:04 07:04 WBC 6.1 RBC 4.40 Hgb 12.4 Hct 36.5 MCV 82.9 MCH 28.1 MCHC 33.9 RDW 14.1 Plt Count 208 MPV 9.0 Sodium 137 Potassium 4.0 Chloride 102 Carbon Dioxide 30 Anion Gap 6 L BUN 12.1 Creatinine 0.8 Est GFR (CKD-EPI)AfAm 98.24 Est GFR (CKD-EPI)NonAf 84.76 Random Glucose 139 H Calcium 8.6 Phosphorus 3.6 Magnesium 2.3 Total Bilirubin 0.7 AST 14 L ALT 17 Alkaline Phosphatase 80 Total Protein 6.4 Albumin 3.3 L TSH 1.68 Thyroxine (T4) 8.8 meds reviewed ASSESSMENT AND PLAN: Syncopal episodes -Unclear etiology -tele unremarkable -2decho normal EF, and mod- severe TR, asymtomatic, will get out pt nascimento -Carotid duplex, neck cta reports reviewed, needs outpatient fu -holter monitor outpatient -Will need f/u with PCP, neuro, cardio on d/c AAA -Stable, without dissection -Continue outpatient follow up Hypertension -Continue home Labetalol stable for dc home
== END 2019-09-15 17:36 | disposition home or self-care (01) ==
LOC: JER 09:22 → JERBED 13:51 → J4W 16:55
PROVIDERS: ADMIT Internal Medicine; ATTEND Internal Medicine
DX: R55 Syncope and collapse (principal); I10 Essential (primary) hypertension; I45.19 Other right bundle-branch block; E04.1 Nontoxic single thyroid nodule; I71.4 Abdominal aortic aneurysm, without rupture; N32.81 Overactive bladder; K21.9 Gastro-esophageal reflux disease without esophagitis; Z90.710 Acquired absence of both cervix and uterus
CPT/HCPCS: 36415; 70450-TC; 70498-TC; 71046-TC-FY; 71275-TC; 74174-TC; 80053; 83735; 84100; 84436; 84443; 84484; 85025; 85027; 85610; 85730; 93005; 93010; 93306-TC; 93880-TC; 97116-GP; 97161-GP; 99285-25; G0378; Q9967